=== PATIENT | female | born 1960 | race Caucasian/White ===

== ENCOUNTER 2017-04-19 17:30 | Inpatient (IN) | payer OTHER ==
[~2017-04-19] VITALS: Ht 170.2 cm; Wt 73.8 kg
--- NOTE | ~2017-04-19 | HP ---
[facility] AGE[facility] 56 Y [address] 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 The patient apparently had a right upper quadrant pain for a couple of days now. Denies any fevers, chills. Mild nausea. No vomiting. No shortness of breath. No chest pain. No other urinary or bowel changes. REVIEW OF SYSTEMS: Negative, except as per HPI. PAST MEDICAL HISTORY: May-Thurner syndrome. Takes Xarelto every other day. MEDICATIONS: Xarelto every other day. FAMILY HISTORY: Coronary disease in maternal and paternal parts of her family. SOCIAL HISTORY: She does not smoke. She does not drink. ALLERGIES: SHE HAS NO ALLERGIES TO ANY ANTIBIOTICS, MEDICATIONS, OR CONTRAST. PHYSICAL EXAMINATION: VITAL SIGNS: The patient is afebrile. Blood pressure is 120s/80s, heart rate is in the 60s-70s. The patient is saturating 99% on room air. GENERAL: She is alert, awake, and in no acute distress. LUNGS: Lung sounds are clear. No crackles. No wheezing. HEART: Heart sounds regular rate and rhythm. No rubs. No murmurs. ABDOMEN: Mildly tender on the epigastric region upon deep palpation; otherwise, no guarding, no rigidity, no organomegaly. EXTREMITIES: No pedal edema. NEUROLOGIC: Grossly intact. PATIENT'S NAME: KACIE [facility] AGE: 56 Y [address] ROOM: [place] [address] [place] [facility] [place]: 04/19/2017 History & Physical DISCHARGE DATE: FAMILY PHYSICIAN: Emmanuel Church MD ATTENDING PHYSICIAN: ARMANDO CAMARENA PSYCHIATRIC: She is able to make her own decisions. Mood is normal. LABORATORY DATA: Pertinent labs: Total bilirubin of 1.4, mildly elevated, high to normal range is 1.2. She has no LFT derangement. She has no increase in white count. I do not have the report here of the abdominal ultrasound, but apparently per patient and also per sign out from the outside facility, that she had CBD stones per ultrasound. ASSESSMENT AND PLAN: Right upper quadrant pain/common bile duct stones. We will admit the patient inpatient tonight, place the patient n.p.o. after midnight. We will start the patient on pain medications like oral Percocet and IV morphine. Hold her Xarelto. Start her on normal saline at 50 mL an hour. Consult GI and Surgery for tomorrow. MD JOHN JENNINGS/fran /[id number] D: [id number] T: [id number] HISTORY & PHYSICAL
--- NOTE | ~2017-04-19 | CON ---
PATIENT'S NAME: KACIE [facility] AGE: 56 Y [address] ROOM: [place] [id number] LOCATION: [facility] [place] ADMIT DATE: 04/19/2017 Consultation DISCHARGE DATE: FAMILY PHYSICIAN: Emmanuel Church MD ATTENDING PHYSICIAN: ARMANDO CAMARENA DATE OF CONSULTATION: 04/20/2017 REFERRING PHYSICIAN: MOIRA ROJAS MD REASON FOR CONSULTATION: Choledocholithiasis. HISTORY OF PRESENT ILLNESS: This is a very pleasant 56-year-old female with a past medical history of May- Thurner syndrome, status post bilateral iliac stents, who takes Xarelto daily. She states her last dose was on Sunday. She was transferred from an outside facility with right upper quadrant pain secondary to choledocholithiasis. Abdominal ultrasound was completed, showing gallbladder mildly dilated measuring 11.3 cm in length with 2 small gallstones noted, largest measuring 8 mm. Gallbladder wall is thickened measuring 4 mm. Two stones noted in common bile duct which is dilated at 12 mm. The patient denies any fever or chills at home. No nausea or vomiting. She apparently began having right upper quadrant pain for the past few days that progressively worsened, warranting further workup. She denies any acute chest pain, chest pressure, shortness of breath, fever, or chills. 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 Xarelto daily, with her last dose being on Sunday. SOCIAL HISTORY: The patient denies any tobacco or alcohol use. FAMILY HISTORY: Coronary artery disease in parents. Denies any known gastrointestinal diseases. ALLERGIES: NO KNOWN MEDICATION ALLERGIES. CURRENT MEDICATIONS: Please refer to the medication administration record. REVIEW OF SYSTEMS: An all-point review of systems was completed, all were negative except for those identified in the History of Present Illness. PATIENT'S NAME: KACIE [facility] AGE: 56 Y [address] ROOM: [address] [address] LOCATION: [facility] [place] ADMIT DATE: 04/19/2017 Consultation DISCHARGE DATE: FAMILY PHYSICIAN: Emmanuel Church MD ATTENDING PHYSICIAN: ARMANDO CAMARENA PHYSICAL EXAMINATION: GENERAL: A pleasant 56-year-old female who appears to be in no acute distress. VITAL SIGNS: Temperature 98.1, pulse of 67, respirations 22, blood pressure 128/74, oxygen saturation is 94% on room air. SKIN: [place], warm, and dry. No jaundice. HEENT: Head is normocephalic and atraumatic. Pupils are equal, round, and reactive to light. Sclerae are clear, nonicteric. Oral mucosa is pink and moist. No thyromegaly. NECK: Soft and supple. CARDIOVASCULAR: Regular. Normal S1 and S2. RESPIRATORY: Respirations even and unlabored. Lungs are clear to auscultation. ABDOMEN: Soft and round. Tender in the right upper quadrant. Bowel sounds are positive. MUSCULOSKELETAL: No muscle weakness or atrophy. EXTREMITIES: No edema. NEUROLOGIC: Grossly nonfocal. LABORATORY AND DIAGNOSTIC DATA: The patient did undergo an abdominal ultrasound at the outside facility as above. The patient's total bilirubin was elevated at 1.4. ALT was 32, AST of 33, and alkaline phosphatase of 58. Glucose 112, BUN of 16, creatinine 0.8, calcium 9.6, potassium of 3.5, and sodium 142. White blood cell count of 4.4, hemoglobin of 12.1, hematocrit of 35, and platelets of 233. ASSESSMENT AND PLAN: Again, this is a very pleasant 56-year-old female who was transferred from an outside facility with choledocholithiasis. The patient is on Xarelto at home, though states her last dose was on Sunday. At this time, we will go forth with ERCP. The patient was informed of possible complications to include pancreatitis, bleeding, and need for transfusion and surgery. This was discussed with the patient per Dr. Moira Rojas. The patient verbalizes understanding. Further recommendations to be given status post ERCP. Thank you for this consult. LEONIDAS LANG APRN FOR MD DERICK BUNDY/fran PATIENT'S NAME: KERMIT HESTER [facility] AGE: 56 Y [address] ROOM: [place] [address] LOCATION: [facility] [place] ADMIT DATE: 04/19/2017 Consultation DISCHARGE DATE: FAMILY PHYSICIAN: Emmanuel Church MD ATTENDING PHYSICIAN: ARMANDO CAMARENA /[id number] d: 04/20/17 1125 t: 04/24/17 0751, CONSULTATION REPORT
--- NOTE | ~2017-04-19 | DS ---
PATIENT'S NAME: KACIE [facility] AGE: 56 Y [address] ROOM: [place] [id number] LOCATION: [facility] [place] ADMIT DATE: 04/19/2017 Discharge Summary DISCHARGE DATE: 04/20/2017 FAMILY PHYSICIAN: Emmanuel Church MD ATTENDING PHYSICIAN: Radha Chavira DISCHARGE DIAGNOSES: 1. Choledocholithiasis. 2. May-Thurner syndrome. 3. History of deep venous thrombosis. PROCEDURES: 1. ERCP with stent placement. 2. Sphincterotomy with balloon by Dr. Rojas. REASON FOR ADMISSION: Right upper quadrant pain. LABORATORY DATA: None. IMAGING: None. Reference is made to the list procedures. HOSPITAL COURSE: She has done well. She has decreased discomfort. She plans to consult with Dr. Berman on Sunday, 04/24 for laparoscopic cholecystectomy and has plans for repeat ERCP with Dr. Rojas on 05/18 to 06/11, somewhere in there to remove the stent. She did not want to do surgery now because she has a wedding shower schedule with her [id number] tomorrow and somebody else is having homecoming tomorrow, so she wanted to be available for those things. MEDICATIONS: Per nursing med recon and really she is not going out on much, just some Effexor, and she can restart her Xarelto in 48 hours post procedure. Time for discharge was less than 30 minutes. DIET AND ACTIVITY: Ad maico. MACK YOUNG MD PATIENT'S NAME: [facility] AGE: 56 Y [address] ROOM: [place] [id number] LOCATION: [facility] [place] ADMIT DATE: 04/19/2017 Discharge Summary DISCHARGE DATE: 04/20/2017 FAMILY PHYSICIAN: Emmanuel Church MD ATTENDING PHYSICIAN: Radha ChaviraJ/kaitl /[id number] d: 04/21/17 0100 t: 04/22/17 0810, DISCHARGE SUMMARY
[2017-04-19] MEDS ORDERED: EFFEXOR XR75 MG PO (21:48)
[2017-04-19] MEDS ORDERED: XARELTO20 MG PO (21:49)
--- NOTE | 2017-04-20 01:20 | NUR ---
ADMISSION: ADMITTED FOR CBD STONES. NPO AFTER MIDNIGHT FOR SURGICAL PROCEDURE POSSIBLY IN AM, ERCP AND? IV TO L)AC RUNNING NS @50ML/HR. UP AD ALEXANDRU. NO COMPLAIN OF PAIN DURING SHIFT. HAS PERCOCET AND MORPHINE PRN FOR PAIN. Had 2 DIARRHEAL STOOLS DURING THE SHIFT, BUT SAID THAT THIS IS NORMAL FOR HER.
--- NOTE | 2017-04-20 15:15 | NUR ---
Met with patient and daughter at bedside today. Introduced myself and explained my role with the CM department. Patient states that she has a bridal shower this weekend and so she would like to discharge tonight and follow up on an outpatient basis if surgery is needed. She denies any discharge needs. Will continue to follow and offer supports as needed.
--- NOTE | 2017-04-20 17:15 | NUR ---
DISCHARGE: Pt. was educated on gallstone treatments, ERCP aftercare, and discharge instructions. Verbalized understanding of teaching, no questions or concerns. No new prescriptions. Will follow up as ordered. Left with all belongings and prescriptions. IV removed by primary nurse. Taken to front door by aide and driven home by daughter. Out at 1715.
--- NOTE | 2017-04-20 19:17 | NUR ---
D: PATIENT VITAL SIGNS STABLE PATIENT AFEBRILE. PATIENT HAD ERCP THIS AM DID COMPLAIN OF EPIGASTRIC PAIN BUT RELIEVES WITH PASSING GAS. PATIENT TOLERATED WATER AND JELLO WITHOUT EMESIS. ORDERS RECEIVED TO DISCHARGE PATIENT TO HOME WITH FOLLOWUP AT CLINIC NEXT WEEK I: DISCHARGE INSTRUCTIONS GIVEN PER Kumar LOPEZ R: PATIENT DENIES ANY QUESTIONS P: CONTINUE WITH DISCHARGE ORDERED.
[2017-04-23] MEDS ORDERED: NORCO 5-325 TA1 EACH PO (15:43)
== END 2017-04-20 17:28 | disposition disaster alternative care site (69) | DRG 419 ==
LOC: GMSU 18:04
PROVIDERS: ADMIT Hospitalist
PROC: 0F798DZ Dilation of Common Bile Duct with Intraluminal Device, Via Natural or Artificial Opening Endoscopic (ICD-10-PCS; principal; 2017-04-20)
PROC: 0FT44ZZ Resection of Gallbladder, Percutaneous Endoscopic Approach (ICD-10-PCS; principal; 2017-04-20)
DX: K80.20 Calculus of gallbladder without cholecystitis without obstruction (principal); Z86.718 Personal history of other venous thrombosis and embolism; Z79.01 Long term (current) use of anticoagulants
CPT/HCPCS: C1769; J2270; J2405; J3010; J7030